=== PATIENT | male | born 1960 | race Caucasian/White ===

== ENCOUNTER 2016-12-26 11:28 | Outpatient (CLI) ==
[2013-02-13 07:56] VITALS: BMI 25.7
[2016-12-26 12:56] LABS: ALBUMIN 4.1 g/dL (3.4-5.0); ALBUMIN/GLOBULIN RATIO 1.52; BILIRUBIN,TOTAL 0.82 mg/dL (0.00-1.20); CALCIUM 9.4 mg/dL (8.2-10.2); CHOL/HDL RATIO 4.7 (4.5-6.4); TOTAL PROTEIN 6.8 g/dL (6.4-8.2)
== END 2016-12-26 11:29 | disposition home or self-care (01) ==
LOC: LAB 11:28
PROVIDERS: ATTEND Nurse Practitioner Family
DX: E78.5 Hyperlipidemia, unspecified (principal); F32.9 Major depressive disorder, single episode, unspecified; I10 Essential (primary) hypertension
CPT/HCPCS: 36415; 80053; 80061

== ENCOUNTER 2017-01-30 18:17 | Emergency (ER) ==
[2017-01-30 18:18] VITALS: BMI 25.7
[2017-01-30 18:23] VITALS: BP 174/96; TEMP 98.5
--- NOTE | 2017-01-30 18:35 | ED.PDOC ---
General ED Provider: Dr. JANET MARTINEZ Chief Complaint: Rectal Pain Stated Complaint: retained foreign body in rectum Time Seen by Physician: 18:18 (seen with nurse at all times ) Mode of Arrival: Walk-In Information Source: Patient Exam Limitations: No limitations Nursing and Triage Documentation Reviewed and Agree: Yes Review of Systems - Review Of Systems Constitutional: Reports: No symptoms Eyes: Reports: No symptoms Ears, Nose, Mouth, Throat: Reports: No symptoms Respiratory: Reports: No symptoms Cardiac: Reports: No symptoms GI: Reports: Other (rectal pain) : Reports: No symptoms Musculoskeletal: Reports: No symptoms Skin: Reports: No symptoms Neurological: Reports: No symptoms Endocrine: Reports: No symptoms Hematologic/Lymphatic: Reports: No symptoms All Other Systems: Reviewed and Negative Past Medical History - Past Medical History Previously Healthy: Yes Endocrine: Reports: None Cardiovascular: Reports: None Respiratory: Reports: None Hematological: Reports: None Gastrointestinal: Reports: None Genitourinary: Reports: None Neuro/Psych: Reports: None Musculoskeletal: Reports: None Cancer: Reports: None - Surgical History General Surgical History: Reports: None - Family History Family History: Reports: None - Social History Smoking Status: Former smoker Hx Substance Use: No Alcohol Screening: None - Immunizations Tetanus Shot up to Date: No Physical Exam - Physical Exam Appearance: Well-appearing, No pain distress, Well-nourished Eyes: TICO, EOMI, Conjunctiva clear ENT: Ears normal, Nose normal, Oropharynx normal Respiratory: Airway patent, Breath sounds clear, Breath sounds equal, Respirations nonlabored Cardiovascular: RRR, Pulses normal, No rub, No murmur GI/: Soft, Nontender, No masses, Bowel sounds normal, No Organomegaly Musculoskeletal: Normal strength, ROM intact, No edema, No calf tenderness Skin: Warm, Dry, Normal color Neurological: Sensation intact, Motor intact, Reflexes intact, Cranial nerves intact, Alert, Oriented Psychiatric: Affect appropriate, Mood appropriate Critical Care Note - Critical Care Note Total Time (mins): 0 Course - Course Orders, Labs, Meds: Orders Category Date Time Status PELVIS 1 OR 2 VIEWS Stat RADS 01/30/17 18:27 Ordered Vital Signs: Temp Pulse Resp BP Pulse Ox 01/30/17 18:18 98.5 F 73 18 174/96 H 98 Departure - Departure Time of Disposition: 18:34 Disposition: HOME SELF-CARE Discharge Problem: Rectal pain Instructions: Rectal Pain (ED) Condition: Good Pt referred to PMD for follow-up: No Additional Instructions: Please call your Family Physician as soon as possible to schedule a follow-up appointment. Allergies/Adverse Reactions: Allergies No Known Allergies Allergy (Unverified 02/13/13 07:44) Home Medications: Ambulatory Orders Atorvastatin Calcium [Lipitor] 80 mg PO DAILY 02/13/13 Citalopram Hydrobromide [Celexa] 40 mg PO DAILY 02/13/13 Meloxicam [Mobic] 1 mg PO BID 02/13/13 [place]-3 Fatty Acids/Fish Oil [Fish Oil 1,000 mg Capsule] 1 each PO DAILY Pantoprazole Sodium 40 mg PO DAILY 07/22/16
--- NOTE | 2017-01-30 19:09 | DI ---
EXAM: Pelvis, single view, 01/30/2017 HISTORY: Vibratorinserted into the rectum COMPARISON: None. FINDINGS / IMPRESSION: The osseous structures of the pelvis appear intact. A tubular foreign body is present in the projection of the central pelvis. This is consistent with the provided clinical history.
== END 2017-01-30 19:09 | disposition home or self-care (01) ==
LOC: ED 18:17
DX: K62.89 Other specified diseases of anus and rectum (principal)
CPT/HCPCS: 99285

== ENCOUNTER 2017-11-12 11:59 | Outpatient (CLI) | END 2017-11-12 12:00 | disposition home or self-care (01) | LOC: LAB 11:59 | PROVIDERS: ATTEND Nurse Practitioner Family | DX: F32.9 Major depressive disorder, single episode, unspecified (principal); E78.5 Hyperlipidemia, unspecified; Z12.5 Encounter for screening for malignant neoplasm of prostate | CPT/HCPCS: 36415; 80053; 80061; 85025 ==

== ENCOUNTER 2018-11-30 10:49 | Outpatient (CLI) | END 2018-11-30 10:50 | disposition home or self-care (01) | LOC: RHC-LAB 10:49 | PROVIDERS: ATTEND Nurse Practitioner Family | DX: Z00.00 Encounter for general adult medical examination without abnormal findings (principal); I10 Essential (primary) hypertension; F32.9 Major depressive disorder, single episode, unspecified; E78.5 Hyperlipidemia, unspecified; Z12.5 Encounter for screening for malignant neoplasm of prostate | CPT/HCPCS: 36415; 80053; 80061; 84443; 85025 ==